=== PATIENT | male | born 1990 | race Caucasian/White ===

== ENCOUNTER 2018-09-27 18:48 | Emergency (ER) | payer OTHER ==
[~2018-09-27] VITALS: Ht 167.6 cm; Wt 129.3 kg
[2018-09-27] MEDS ORDERED: KETO10TA2 PO (22:25)
[2018-09-27] MEDS ORDERED: AIRBORNE EFFER1 EACH PO (22:25)
[2018-09-27] MEDS ORDERED: PHENERGAN25 MG PO (22:25)
== END 2018-09-27 22:38 | disposition home or self-care (01) ==
LOC: ER 18:48
DX: J11.1 Influenza due to unidentified influenza virus with other respiratory manifestations (principal)